=== PATIENT | female | born 1990 | race Caucasian/White ===

== ENCOUNTER → 2023-12-09 | Outpatient (CLI) | payer BC ==
--- NOTE | 2023-12-09 12:41 | US ---
EXAMINATION TYPE: US abdomen complete DATE OF EXAM: 12/09/2023 COMPARISON: NONE CLINICAL INDICATION: Female, 33 years old with history of K21.9 GASTRO-ESOPHAGEAL REFLUX DISEASE WITH OUT ESO; Epigastric pain. TECHNIQUE: Multiple sonographic images of the abdomen are obtained. FINDINGS: EXAM MEASUREMENTS: Liver Length: 12.4 cm Gallbladder Wall: 0.2 cm CBD: 0.3 cm Spleen: 9.6 cm Right Kidney: 10.3 x 4.8 x 4.7 cm Left Kidney: 9.7 x 4.1 x 4.5 cm Pancreas: wnl Liver: wnl Gallbladder: No wall thickening or stones Evidence for sonographic Suárez's sign: neg CBD: wnl Spleen: wnl Right Kidney: No hydronephrosis or masses seen Left Kidney: No hydronephrosis or masses seen Upper IVC: wnl Abd Aorta: No AAA visualized at time of scan IMPRESSION: Unremarkable sonographic examination of the abdomen.
== END | disposition home or self-care (01) ==
LOC: RADUSWWP 06:59
PROVIDERS: ATTEND Internal Medicine
DX: K21.9 Gastro-esophageal reflux disease without esophagitis (principal); R10.13 Epigastric pain
CPT/HCPCS: 76700

== ENCOUNTER → 2024-05-23 | Outpatient (CLI) | payer BC ==
--- NOTE | 2024-07-02 12:13 | CONS ---
CONSULTATION REASON FOR CONSULTATION: 54-year-old lady has been evaluated in Sleep Center for excessive daytime sleepiness, insomnia, and multiple awakenings from sleep. HISTORY OF PRESENT ILLNESS: Sleep-wake evaluation. Usual sleep schedule from 9 p.m. to 5:20 a.m. on weekdays and from 9 p.m. to 8:30 to 12 noon on weekends. The patient has difficulties to initiate sleep and wakes up from sleep 3 times with 2 episodes of nocturia. Positive history of nightmares, panic attacks, snoring during episodes when has allergy. During the day, the patient feels significant sleepiness. [place]ullinger Sleepiness Scale increased to 15. Sometimes take nap after work at 2 p.m. PAST MEDICAL HISTORY: Positive for asthma, gastritis, headaches. PAST SURGICAL HISTORY: None. MEDICATIONS: 1. Synthroid. 2. Albuterol. 3. Pepcid. SOCIAL HISTORY: Negative for smoking or using alcohol. REVIEW OF SYSTEMS: Awakenings from sleep, sleepiness during the day, headaches. No blood in stool or urine. No abdominal pain. No chest pain. No fevers. No double vision. No recent chest pain. No shortness of breath. No abdominal pain. No bleeding episodes. No blood in the urine. No seizure episodes. PHYSICAL EXAMINATION: GENERAL: The patient in no distress. VITAL SIGNS: BP 119/79, HR 66, RR 16, weight 168 pounds, BMI 28.0, temperature 98.6, . HEENT: PERRLA, EOMI, evaluation of oropharynx showed tongue protrudes midline. Upright position of soft palate, Mallampati 2. Restriction of nasal breathing. NECK: Supple, no JVD. Thyroid is not palpable. 14-2/3rd inches in circumference. LUNGS: Clear to percussion and to auscultation. Good air exchange. No wheezing or rhonchi. HEART: S1, S2 regular. No murmurs, gallops, or rubs. ABDOMEN: Soft and nontender. Bowel sounds are present. No organomegaly appreciated. EXTREMITIES: No clubbing or cyanosis. No edema. EDITOR NEWS: Awake, alert, and oriented X3. Cranial nerves 2 to 7 intact. There is no fasciculation or atrophy. noted. No focal deficits observed. IMPRESSION: 1. Significant sleepiness with Zullinger Sleepiness Scale increased to 15. Differential diagnosis includes hypersomnia. 2. Awakenings from sleep, possible obstructive sleep apnea, but no significant closing of the throat, no history of snoring, although restriction of nasal breathing. 3. History of allergy. 4. Asthma. 5. Headaches. 6. Gastritis. 7. Insomnia. PLAN: 1. Home sleep apnea test for evaluation of patient breathing during the sleep. 2. Following plan after reading a sleep study if home sleep study will be negative for obstructive sleep apnea-hypopnea syndrome. Multiple sleep latency test. 3. Sleep hygiene regular time in bed for at least 8 hours. 4. No driving if feeling sleepiness. Thank you very much for referring this patient for consultation. Sincerely, Enrique Hernandez MD, PhD, FAASM Diplomat of [employer] Sleep Medicine Board of [employer] Education And Outreach Coordinator of [facility] [place] MMODL / IJN: [id number] / MTDAmanda
== END ==
LOC: 3 N SLEEP 05-20 14:40
PROVIDERS: ATTEND Internal Medicine
CPT/HCPCS: 99211

== ENCOUNTER → 2024-07-06 | Outpatient (CLI) | payer BC ==
--- NOTE | 2024-07-11 14:27 | P.PCN ---
Description of Procedure: CLINICAL: A home sleep apnea test has been done for confirmation of possible obstructive sleep apnea-hypopnea syndrome. DESCRIPTION OF PROCEDURE: RESULTS: Recording time was 12 hours 00 minutes. Evaluation time was 11 hours 36 minutes. Evaluation time is sufficient for making conclusion about results of the test. Raw data of sleep recording has been reviewed and is adequate. Respiratory channel showed 12 apneas and 13 hypopneas. Apnea-hypopnea index was 2.2 per hour. Pulse rate in the range between minimum 50, maximum 97, average 64 by computer calculation. Lowest desaturation was 90%. IMPRESSION: 1. No significant respiratory abnormalities have been documented during the sleep study. Normal oxygenation during sleep. 2. Patient presents with symptoms of significant excessive daytime sleepiness with [place] Sleepiness Scale 15. Differential diagnosis include hypersomnia and narcolepsy. Please see other impressions from consultation. PLAN: 1. Multiple sleep latency test for objective evaluation symptoms of excessive daytime sleepiness for diagnosis of possible hypersomnia and narcolepsy. 2. Sleep hygiene with regular time in bed for at least 8 hours. 3. No driving if feeling any sleepiness. Thank you very much for allowing me to participate in the management of your patient. Sincerely, Enrique Hernandez MD, PhD, FAASM Diplomat of [employer] Sleep Medicine Board of [employer] Blow Molding Machine Tender of [facility] [place] cc: Nicolas Giron DO
== END ==
LOC: 3 N SLEEP 13:21
PROVIDERS: ATTEND Internal Medicine
DX: G47.10 Hypersomnia, unspecified (principal)

== ENCOUNTER 2024-08-12 19:35 | Outpatient (CLI) | payer BC ==
[2024-08-13 23:43] LABS: Urine Alcohol Negative (Negative); Urine Barbiturate Negative (Negative); Urine Cocaine Negative (Negative); Urine Methadone Negative (Negative); Urine Opiates Negative (Negative); Urine Phencyclidine Negative (Negative)
--- NOTE | 2024-08-15 15:35 | P.PCN ---
Description of Procedure: POLYSOMNOGRAPHY AND MSLT REPORT PROCEDURE(S)/DATE(S): Polysomnography 08/12/2024, multiple sleep latency test 08/13/2024 CLINICAL: Patient has been seen in the sleep center for evaluation of obstructive sleep apnea-hypopnea syndrome. Please see my consultation. Sleep study has been done for evaluation of patient breathing during the sleep. PROCEDURE: The standard montage for clinical polysomnography included the electroencephalogram, the electrooculogram, the mentalis surface el ectromyography and Lead II cardiography. The respiratory battery consisted of measurements of nasal/buccal air flow, pressure transducer measurements from nose, thoracic and/or abdominal effort and intercostal surface electromyography. Video monitoring has been done to check for any parasomnia events. Nocturnal oxyhemoglobin saturations were obtained by finger oximetry. Step-mcelroy titration with positive airway pressure was utilized to control the respiratory events, if necessary. RESULTS: During the diagnostic sleep study sleep efficiency was slightly decreased to 86.1%. Latency to sleep onset was prolonged to 38.0 min. Sleep architecture showed stage NI was short 2.9%, Delta sleep was normal 14.0%, REM sleep was normal 20.6%. Respiratory channel showed 0 obstructive apneas, 0 mixed apneas, 2 central apneas, 0 hypopneas with lowest oxygen level 92%. Total apnea hypopnea index was 0.3. Heart rate was in the range between 61 and 73, average 67. EMG showed 0 periodic limb movements per hour. Multiple sleep latency test have been done on the following day and consisted from 4 naps. Patient fell asleep on all naps. Mean sleep latency was 4.8 minutes, 2 sleep onset REM periods have been documented. IMPRESSIONS: 1. No significant respiratory abnormalities have been documented during the sleep study, normal oxygenation during sleep. 2. Multiple sleep latency test confirmed pathological sleepiness with 2 sleep onset REM periods which indicate narcolepsy. Please see other impressions from consultation PLAN: 1. I will see patient for follow-up visit to explain results of the test and recommendations. 2. I will consider to start patient on medications preventing daytime sleepiness. 3. Sleep hygiene with regular time in bed for at least 7-1/2 hours. 4. No driving if feeling sleepiness. Thank you very much for allowing me to participate in the management of your patient. Sincerely, Enrique Hernandez MD, PhD, FAASM. Diplomat of [employer] [employer], Sleep Medicine Board by [employer] Chapter Relations Administrator of [facility] [place] cc: Nicolas Matias DO
== END 2024-08-13 15:48 | disposition home or self-care (01) ==
LOC: 3 N SLEEP 19:35
PROVIDERS: ATTEND Internal Medicine
DX: G47.11 Idiopathic hypersomnia with long sleep time (principal); J45.901 Unspecified asthma with (acute) exacerbation; G47.419 Narcolepsy without cataplexy; G47.52 REM sleep behavior disorder
CPT/HCPCS: 80306; 95805; 95810

== ENCOUNTER → 2024-08-15 | Outpatient (CLI) | payer BC ==
[2024-08-15 17:44] VITALS: BP 106/70; PULSE 84; RESP 16; TEMP 98
--- NOTE | 2024-08-15 18:38 | P.PROGSL ---
Subjective DATE: 08/15/2024 FOLLOW UP VISIT. Patient returned to sleep center for follow-up visit to discuss results of sleep study and following plan. I discussed results of sleep studies with patient in details. Diagnostic polysomnogram did not show any significant respiratory abnormalities during sleep. Normal oxygenation during sleep. Lowest oxygen was 92%. Multiple sleep latency test on the following day consisted from 4 naps, patient fell asleep on all naps. Mean sleep latency pathologically short 4.8 minutes with 2 sleep onset REMperiods.. . [place] sleepiness scale is significantly increased to 15. MEDICATIONS:1. Symbicort 2. Albuterol 3. Pepcid During physical exam: GENERAL: A pleasant patient without any distress. VITAL SIGNS: Please see below. HEENT: PERRLA, EOMI. NECK: Supple. No JVD. LUNGS: Clear to percussion and to auscultation. Good air exchange. No wheezing or rhonchi. HEART: S1, S2 regular. ABDOMEN: Soft and nontender. EXTREMITIES: No clubbing or cyanosis. VOLLEYBALL PLAYER: Awake, alert, and oriented x3. No focal deficit. Impressions: 1. No significant respiratory abnormalities have been documented during the sleep study. Normal oxygenation during sleep 2. No periodic limb movements have been documented during sleep test. 3. Multiple sleep latency test confirmed pathological sleepiness 4.8 minutes with 2 sleep onset REM periods, which indicates narcolepsy. 4. Asthma. 5. History of allergy. 6. Headaches. 7. Gastritis. 8. History of insomnia. Plan: 1. Patient will start lowest dose of Adderall 5 mg twice a day with a goal to prevent sleepiness. 2. Sleep hygiene with regular time in bed for at least 8 hours. 3. Daytime naps permitted 4. Precautions related to driving. No driving if feel any sleepiness. Patient is aware about civil and criminal liability for unsafe driving, promised to follow recommendations. 5. Follow up visit in 1 months or earlier if patient has any problems. Thank you very much for allowing me to participate in the management of your patient. Enrique Hernandez MD, PhD, FAASM. Diplomat of [employer], Sleep Medicine Board by [employer] Marketing Graphics Specialist of [facility] [place] cc: Nicolas Matias DO Objective - Vital Signs Vital Signs: Vital Signs Temp 98.0 F 08/15/24 17:43 Pulse 84 08/15/24 17:43 Resp 16 08/15/24 17:43 BP 106/70 08/15/24 17:43 Pulse Ox 98 08/15/24 17:43 FiO2 Home Medications: Home Medications Medication Instructions Recorded Confirmed Type No Known Home Medications 06/21/14 06/21/14 History
== END ==
LOC: 3 N SLEEP 16:29
PROVIDERS: ATTEND Internal Medicine
CPT/HCPCS: 99212

== ENCOUNTER → 2024-09-19 | Outpatient (CLI) | payer BC ==
[2024-09-19 15:10] VITALS: BP 110/75; PULSE 62; RESP 16; TEMP 98.2
--- NOTE | 2024-09-19 15:33 | P.PROGSL ---
Subjective DATE: 09/19/2024 FOLLOW UP VISIT. Patient returned to sleep center for follow-up visit related to treatment of significant excessive daytime sleepiness secondary to narcolepsy. Previously patient was tried on treatment with Adderall, but developed side effects and Adderall was stopped and patient was switched to armodafinil 150 mg once a day in the morning. With this medication patient does not feel significant changes of her alertness, no any side effects. . [place] sleepiness scale is 14. MEDICATIONS: Have been reviewed, please see below During physical exam: GENERAL: A pleasant patient without any distress. VITAL SIGNS: Please see below. HEENT: PERRLA, EOMI. NECK: Supple. No JVD. LUNGS: Clear to percussion and to auscultation. Good air exchange. No wheezing or rhonchi. HEART: S1, S2 regular. ABDOMEN: Soft and nontender. EXTREMITIES: No clubbing or cyanosis. DINKING MACHINE OPERATOR: Awake, alert, and oriented x3. No focal deficit. Impressions: 1. Narcolepsy, confirmed by multiple sleep latency test with mean sleep latency of 4.8 minutes and to sleep onset REM. 2. Asthma. 3. Allergy. 4. History of headaches. 5. History of gastritis. 6. History of insomnia. Plan: 1. Patient will continue treatment with armodafinil, dose will be increased to 250 mg in the morning. 2. Sleep hygiene with regular time in bed for at least 8 hours. 3. Daytime naps permitted 4. Precautions related to driving. No driving if feel any sleepiness. Patient is aware about civil and criminal liability for unsafe driving, promised to follow recommendations. 5. Follow up visit in 1 months or earlier if patient has any problems. Thank you very much for allowing me to participate in the management of your patient. Enrique Hernandez MD, PhD, FAASM. Diplomat of [place] [employer] Medicine, Sleep Medicine Board by [place] Dog Handler of [facility] [place] cc: Nicolas Matias DO Objective - Vital Signs Vital Signs: Vital Signs Temp 98.2 F 09/19/24 15:09 Pulse 62 09/19/24 15:09 Resp 16 09/19/24 15:09 BP 110/75 09/19/24 15:09 Pulse Ox 98 09/19/24 15:09 FiO2 Intake & Output 09/18/24 09/19/24 09/19/24 18:59 06:59 18:59 Weight 74.049 kg Home Medications: Home Medications Medication Instructions Recorded Confirmed Type No Known Home Medications 06/21/14 06/21/14 History
== END ==
LOC: 3 N SLEEP 14:35
PROVIDERS: ATTEND Internal Medicine
DX: G47.33 Obstructive sleep apnea (adult) (pediatric) (principal); G47.52 REM sleep behavior disorder; G47.419 Narcolepsy without cataplexy; J45.909 Unspecified asthma, uncomplicated; Z86.69 Personal history of other diseases of the nervous system and sense organs; Z86.59 Personal history of other mental and behavioral disorders
CPT/HCPCS: 99212

== ENCOUNTER → 2024-11-01 | Outpatient (CLI) | payer BC ==
[2024-11-01 14:53] VITALS: BP 117/71; PULSE 76; RESP 16; TEMP 98
--- NOTE | 2024-11-01 16:48 | P.PROGSL ---
Subjective DATE: 11/01/2024 FOLLOW UP VISIT. Patient returned to sleep center for follow-up visit related to treatment of significant excessive daytime sleepiness secondary to narcolepsy. Patient was on treatment with armodafinil 150 mg once a day in the morning, but did not feel significant improvements of alertness and during previous visit dose of medi cation was increased to the 250 mg once a day in the morning. With that dose patient developed side effects, feeling more depressed and tired, medication was stopped. Previously patient was on treatment with Adderall 5 mg twice a day and then dose was increased to 10 mg twice a day, but patient again developed episodes of depression before the second dose of medication. Presently patient is on treatment with caffeine aVF that she is able to control her alertness during the day [place] sleepiness scale is significantly increased to 16. MEDICATIONS:1. Symbicort 2 puffs twice a day 2. Pepcid twice a day 3. Meloxicam 7.5 mg once a day 4. Albuterol as needed During physical exam: GENERAL: A pleasant patient without any distress. VITAL SIGNS: Please see below. HEENT: PERRLA, EOMI. NECK: Supple. No JVD. LUNGS: Clear to percussion and to auscultation. Good air exchange. No wheezing or rhonchi. HEART: S1, S2 regular. ABDOMEN: Soft and nontender. EXTREMITIES: No clubbing or cyanosis. DRIVER ENGINEER: Awake, alert, and oriented x3. No focal deficit. Impressions: 1. Narcolepsy, confirmed by multiple sleep latency test with mean sleep latency of 4.8 minutes and 2 sleep onset REM periods. Patient had side effects on treatment with Adderall and with armodafinil with possibly depressive episodes. 2. Episodes of depression. 3. Asthma. 4. Allergy. 5. History of headaches. 6. History of gastritis. 7. History of insomnia. Plan: 1. I would recommend evaluation by psychiatrist with the goal to discuss possible pharmacotherapy. Because of risk of some unpredictable side effects of medications I did not start patient on a new medication at the present time. 2. Sleep hygiene with regular time in bed for at least 8 hours. 3. Daytime naps permitted 4. Precautions related to driving. No driving if feel any sleepiness. Patient is aware about civil and criminal liability for unsafe driving, promised to follow recommendations. 5. Follow-up visit in 2 months. Thank you very much for allowing me to participate in the management of your patient. Enrique Hernandez MD, PhD, FAASM. Diplomat of [employer] Medicine, Sleep Medicine Board by [employer] Junior Bookkeeper of [facility] [place] cc: Nicolas Matias DO Objective - Vital Signs Vital Signs: Vital Signs Temp 98 F 11/01/24 14:52 Pulse 76 11/01/24 14:52 Resp 16 11/01/24 14:52 BP 117/71 11/01/24 14:52 Pulse Ox 98 11/01/24 14:52 FiO2 Intake & Output 10/31/24 11/01/24 11/01/24 18:59 06:59 18:59 Weight 72.121 kg Home Medications: Home Medications Medication Instructions Recorded Confirmed Type No Known Home Medications 06/21/14 06/21/14 History
== END ==
LOC: 3 N SLEEP 14:38
PROVIDERS: ATTEND Internal Medicine
DX: G47.419 Narcolepsy without cataplexy (principal); J45.909 Unspecified asthma, uncomplicated; Z86.59 Personal history of other mental and behavioral disorders; Z91.09 Other allergy status, other than to drugs and biological substances; Z87.19 Personal history of other diseases of the digestive system; Z87.898 Personal history of other specified conditions; Z86.69 Personal history of other diseases of the nervous system and sense organs
CPT/HCPCS: 99212